=== PATIENT | male | born 1945 | race Caucasian/White ===

== ENCOUNTER 2022-02-19 11:55 | Emergency (ER) | payer OTHER ==
[~2022-02-19] VITALS: Ht 188 cm; Wt 99.8 kg
[~2022-02-19 11:55] MED LIST: ALUMAGX30 PO; CIPR250 PO; CYAN1000 PO; CYCL10 PO; LIDO2L MM; OMEP20ER PO; SALS750 PO; TRAZ50 PO
[2022-02-19 12:34] LABS: BASOPHILS ABSOLUTE AUTO 0.01 K/mm3 (0.00-0.23); BASOPHILS PERCENT AUTO 0 % (0-2); EOSINOPHILS ABSOLUTE AUTO 0.09 K/mm3 (0.00-0.68); EOSINOPHILS PERCENT AUTO 1 % (0-6); Hematocrit 41.3 % (37.0-53.0); Hemoglobin 13.3 g/dL (13.5-17.5); IMMATURE GRAN ABSOLUTE AUTO 0.01 K/mm3 (0.00-0.10); IMMATURE GRAN PERCENT AUTO 0 % (0-1); LYMPHOCYTES ABSOLUTE AUTO 1.37 K/mm3 (0.84-5.20); LYMPHOCYTES PERCENT AUTO 19 % (21-46); MONOCYTES ABSOLUTE AUTO 0.85 K/mm3 (0.16-1.47); MONOCYTES PERCENT AUTO 12 % (4-13); Mean Corpuscular HGB 28.7 pg (26.0-34.0); Mean Corpuscular HGB Conc 32.2 g/dL (31.5-36.5); Mean Corpuscular Volume 89 fL (80-100); Mean Platelet Volume 9.6 fL (9.1-12.4); NEUTROPHILS ABSOLUTE AUTO 5.01 K/mm3 (1.96-9.15); NEUTROPHILS PERCENT AUTO 68 % (41-73); Platelet Count 397 K/mm3 (150-400); RDW Coefficient Variation 13.3 % (11.7-14.2); RDW Standard Deviation 43.6 fL (35.1-46.3); Red Blood Cell Count 4.63 M/mm3 (4.30-5.90); White Blood Cell Count 7.34 K/mm3 (4.00-11.30)
[2022-02-19 13:01] LABS: International Normalized Ratio 1.03; Prothrombin Time Results 10.8 Sec (9.7-11.5)
[2022-02-19 13:02] LABS: Albumin, Blood 3.5 g/dL (3.4-5.0); Albumin/Globulin Ratio 0.9 (0.8-1.8); Bilirubin, Total 0.5 mg/dL (0.1-1.0); Bun/Creatinine Ratio 16.6 (12.0-20.0); Calcium, Blood 9.1 mg/dL (8.5-10.1); Creatinine, Blood 0.78 mg/dL (0.60-1.20); Globulin, Blood 3.8 g/dL (2.2-4.0); Magnesium, Blood 1.8 mg/dL (1.6-2.4); Potassium, Blood 4.1 mmol/L (3.5-5.5); Total Protein, Blood 7.3 g/dL (6.4-8.2)
[2022-02-19] MEDS ORDERED: Norco 7.5-3251 EACH PO (14:57)
== END 2022-02-19 15:14 | disposition home or self-care (01) ==
LOC: ER 11:55
PROVIDERS: Emergency Medicine
DX: R09.1 Pleurisy (principal)
CPT/HCPCS: 36415; 71045; 71260; 80053; 83735; 84484; 85025; 85379; 85610; 85730; 93005; 93010; J1170; J1885; J2405; J3010; Q9967

== ENCOUNTER 2022-02-21 09:25 | Inpatient (IN) | payer OTHER ==
[~2022-02-21] VITALS: Ht 188 cm; Wt 102.0 kg
[~2022-02-21 09:25] MED LIST changes: +Norco 7.5-3251 EACH PO
[2022-02-21 09:53] LABS: BASOPHILS ABSOLUTE AUTO 0.03 K/mm3 (0.00-0.23); BASOPHILS PERCENT AUTO 0 % (0-2); EOSINOPHILS ABSOLUTE AUTO 0.04 K/mm3 (0.00-0.68); EOSINOPHILS PERCENT AUTO 0 % (0-6); Hematocrit 43.5 % (37.0-53.0); Hemoglobin 14.5 g/dL (13.5-17.5); IMMATURE GRAN ABSOLUTE AUTO 0.28 K/mm3 (0.00-0.10); IMMATURE GRAN PERCENT AUTO 1 % (0-1); LYMPHOCYTES ABSOLUTE AUTO 0.63 K/mm3 (0.84-5.20); LYMPHOCYTES PERCENT AUTO 3 % (21-46); MONOCYTES ABSOLUTE AUTO 1.62 K/mm3 (0.16-1.47); MONOCYTES PERCENT AUTO 8 % (4-13); Mean Corpuscular HGB Conc 33.3 g/dL (31.5-36.5); Mean Corpuscular Volume 87 fL (80-100); Mean Platelet Volume 9.4 fL (9.1-12.4); NEUTROPHILS ABSOLUTE AUTO 18.03 K/mm3 (1.96-9.15); NEUTROPHILS PERCENT AUTO 87 % (41-73); Platelet Count 401 K/mm3 (150-400); RDW Coefficient Variation 13.2 % (11.7-14.2); RDW Standard Deviation 42.2 fL (35.1-46.3); White Blood Cell Count 20.63 K/mm3 (4.00-11.30)
[2022-02-21 10:13] LABS: Albumin, Blood 2.8 g/dL (3.4-5.0); Albumin/Globulin Ratio 0.7 (0.8-1.8); Bilirubin, Total 0.5 mg/dL (0.1-1.0); Bun/Creatinine Ratio 25.3 (12.0-20.0); Creatinine, Blood 0.75 mg/dL (0.60-1.20); Potassium, Blood 4.6 mmol/L (3.5-5.5); Total Protein, Blood 6.8 g/dL (6.4-8.2)
[2022-02-21] MEDS ORDERED: [UNRECOGNIZED DRUG - OTHER] PO (11:02)
[2022-02-21] MEDS ORDERED: Vitamin B Comple1 EA PO (11:02)
[2022-02-21] MEDS ORDERED: Atarax10 MG PO (11:05)
[2022-02-21] MEDS ORDERED: FINA5 PO (11:06)
[2022-02-21] MEDS ORDERED: TAMS.4ER PO (11:06)
[2022-02-21] MEDS ORDERED: LIDO700A20 TOP (11:07)
[2022-02-21 15:41] LABS: SARS-Cov-2 (COVID-19) PCR, MMC NEGATIVE (NEGATIVE)
--- NOTE | 2022-02-21 19:25 | NUR ---
Admit note Received report from PATRICK Juarez in ed. Pt to room at approx 1420, [facility]. Pt oriented to room and call light, educated on fall risk. Pt reports sob on/off for "awhile", chest pain he was seen for on monday and diagnoses with "pleurisy". Ultra sound tech called regarding thoracentesis, pt taking ibuprofen at home and "full dose" aspirin at [facility] today; notified tech, plans for thorcentesis tomorrow. Pt alert, oriented x4, calm and cooperative with care. Ls clear in upper lobes, dim to bases on admission. At approx 1800 pt went into resp distress, Ls increased dim t/o, increased need for 02 2-4L, increased work of breathing; notified Dr Donohue, new order for one time duoneb and prn cpap if need, duoneb administered per rt pt work of breahing improved. Tele afib 130-150 on admission on cardizem 5mg/hr, bp soft, fluid bolus from ed compelted, started on maintenance fluids, bp trending up, increased cardizem up to 15mg/hr afib 110-130's. Pt reports lower left chest pain that is worse with breathing and chronic back pain. Pt denies nausea, dizziness and numb/tingling. Other vss. Echo order, hr too high to be completed. Pt on iv antibiotics. No other acute changes noted. Report given to oncoming patrick.
[2022-02-22 04:13] LABS: BASOPHILS ABSOLUTE AUTO 0.02 K/mm3 (0.00-0.23); BASOPHILS PERCENT AUTO 0 % (0-2); EOSINOPHILS ABSOLUTE AUTO 0.04 K/mm3 (0.00-0.68); EOSINOPHILS PERCENT AUTO 0 % (0-6); Hemoglobin 13.2 g/dL (13.5-17.5); IMMATURE GRAN ABSOLUTE AUTO 0.44 K/mm3 (0.00-0.10); IMMATURE GRAN PERCENT AUTO 2 % (0-1); LYMPHOCYTES ABSOLUTE AUTO 0.65 K/mm3 (0.84-5.20); LYMPHOCYTES PERCENT AUTO 3 % (21-46); MONOCYTES ABSOLUTE AUTO 1.81 K/mm3 (0.16-1.47); MONOCYTES PERCENT AUTO 8 % (4-13); Mean Corpuscular HGB 28.7 pg (26.0-34.0); Mean Corpuscular Volume 87 fL (80-100); Mean Platelet Volume 9.4 fL (9.1-12.4); NEUTROPHILS ABSOLUTE AUTO 18.56 K/mm3 (1.96-9.15); NEUTROPHILS PERCENT AUTO 86 % (41-73); Platelet Count 425 K/mm3 (150-400); RDW Coefficient Variation 13.4 % (11.7-14.2); RDW Standard Deviation 42.8 fL (35.1-46.3); White Blood Cell Count 21.52 K/mm3 (4.00-11.30)
[2022-02-22 04:28] LABS: International Normalized Ratio 1.09; Prothrombin Time Results 11.4 Sec (9.7-11.5)
[2022-02-22 04:34] LABS: Albumin, Blood 2.3 g/dL (3.4-5.0); Albumin/Globulin Ratio 0.6 (0.8-1.8); Bilirubin, Total 0.3 mg/dL (0.1-1.0); Bun/Creatinine Ratio 21.4 (12.0-20.0); Calcium, Blood 8.4 mg/dL (8.5-10.1); Creatinine, Blood 0.75 mg/dL (0.60-1.20); Globulin, Blood 3.8 g/dL (2.2-4.0); Potassium, Blood 4.1 mmol/L (3.5-5.5); Total Protein, Blood 6.1 g/dL (6.4-8.2)
--- NOTE | 2022-02-22 06:23 | NUR ---
SHIFT SUMMARY PT ALERT AND ORIENTED X 4. HR TACHY AT TIMES, SEE ICU FLOW SHEET FOR CARDIZEM ADJUSTMENTS. CARDIZEM CURRENTLY AT 10 ML/HR. HR 110'S-120. BP STABLE. PT REPORTS PAIN IN L SIDE/BACK. PHYSICIAN AWARE. MEDICATED PER EMAR. PT REPORTS INCREASE IN PAIN THIS AM, PHYSICIAN NOTIFIED AND MEDICATION ORDERED. PT REPORTS TO HAVE DIFFICULTY URINATING. BLADDER SCAN DONE, SHOWING 800 ML OF URINE IN BLADDER. PT REFUSING OPTION OF CATHETER AT THIS POINT. STATES HE WAS TAUGHT HOW TO SELF CATH BY HIS UROLOGIST. PT REQUESTING TO ATTEMPT TO URINATE ON OWN. PT EDUCATED ON RISKS OF URINARY RETENTION. PT CONT TO REFUSE CATH AT THIS TIME. WILL INFORM PHYSICIAN. OXYGEN SATURATION MAINTAINED ABOVE 95% ON 5 L VIA NC. CALL LIGHT WITHIN REACH. WILL CONT TO MONITOR UNTIL REPORT GIVEN TO DAYSHIFT RN.
--- NOTE | 2022-02-22 07:15 | NUR ---
UPDATE PHYSICIAN NOTIFIED OF BLADDER SCAN AMOUNT OF OVER 800, INFORMED PT REFUSING THOMAS CATH AND FOR NURSING STAFF TO STRAIGHT CATH AND THAT PT REPORTS TO HAVE BEEN TAUGHT BY UROLOGIST HOW TO STRAIGHT CATH AT HOME. ORDERS FOR PT TO STRAIGHT CATH SELF. PT PROVIDED WITH SUPPLIES. JAQUELINE NGUYEN INFORMED.
[2022-02-22 10:11] LABS: Automated BF RBC Count 0.003 M/mm3 (0-0); Automated BF WBC Count 6.354 K/mm3 (0-999); Body Fluid WBC Count 6354 /mm3 (0-999); RBC Count, Body Fluid 3000 /mm3 (0-0)
[2022-02-22 10:28] LABS: Protein, Body Fluid 4.2 g/dL
[2022-02-22 10:35] LABS: Lactate Dehydrogenase, Body Fl 2265 U/L
[2022-02-22 10:42] LABS: Color, Body Fluid Yellow (None-Yellow); Total Cell Count, Body Fluid 100
[2022-02-22 10:43] LABS: Appearance, Body Fluid Cloudy (Clear)
[2022-02-22 15:25] LABS: Vancomycin, Trough 10.8 ug/mL (5.0-10.0)
--- NOTE | 2022-02-22 19:32 | NUR ---
Shift Summary Pt alert, oriented x4; anxious at times but cooperative with care. Pt resting in bed, up sba in room. Pt reports pain to left side/ribs, medicated per emar. Pt sob with exertion, breathing treatment prn, spo2 >90% t/o shift, titrated to ra from 5l o2 via nc after throacentesis this am. Pt tele afib, titrated off cardizem, at approx 11am and started po metorpolol, rate 80-130's, hr increased when patient is worked up, bp stable. Pt abd soft, nontedner. Pt self cathed this am, refusing additional cathing this afternoon. Other vss. echo completed this am. Pt expressing fear/concern/anxiety regarding diagnosis, states he fears he has cancer, theraputic listening used. Called to clarify blood culture orders with Dr Vincent, notified hr trending up. Discussed anxiety and pain with Dr Proctor, new order for prn hydroxyzine. Report given to oncoming rn.
[2022-02-23 04:38] LABS: BASOPHILS ABSOLUTE AUTO 0.03 K/mm3 (0.00-0.23); BASOPHILS PERCENT AUTO 0 % (0-2); EOSINOPHILS ABSOLUTE AUTO 0.11 K/mm3 (0.00-0.68); EOSINOPHILS PERCENT AUTO 1 % (0-6); Hemoglobin 13.3 g/dL (13.5-17.5); IMMATURE GRAN ABSOLUTE AUTO 0.09 K/mm3 (0.00-0.10); IMMATURE GRAN PERCENT AUTO 1 % (0-1); LYMPHOCYTES ABSOLUTE AUTO 0.65 K/mm3 (0.84-5.20); LYMPHOCYTES PERCENT AUTO 4 % (21-46); MONOCYTES ABSOLUTE AUTO 1.82 K/mm3 (0.16-1.47); MONOCYTES PERCENT AUTO 10 % (4-13); Mean Corpuscular HGB Conc 33.3 g/dL (31.5-36.5); Mean Corpuscular Volume 87 fL (80-100); Mean Platelet Volume 9.2 fL (9.1-12.4); NEUTROPHILS ABSOLUTE AUTO 15.45 K/mm3 (1.96-9.15); NEUTROPHILS PERCENT AUTO 85 % (41-73); Platelet Count 447 K/mm3 (150-400); RDW Coefficient Variation 13.4 % (11.7-14.2); RDW Standard Deviation 43.3 fL (35.1-46.3); Red Blood Cell Count 4.59 M/mm3 (4.30-5.90); White Blood Cell Count 18.15 K/mm3 (4.00-11.30)
[2022-02-23 05:04] LABS: Albumin, Blood 2.3 g/dL (3.4-5.0); Albumin/Globulin Ratio 0.6 (0.8-1.8); Bilirubin, Total 0.4 mg/dL (0.1-1.0); Calcium, Blood 8.6 mg/dL (8.5-10.1); Creatinine, Blood 0.7 mg/dL (0.60-1.20); Globulin, Blood 3.9 g/dL (2.2-4.0); Total Protein, Blood 6.2 g/dL (6.4-8.2)
--- NOTE | 2022-02-23 05:14 | NUR ---
shift summary pt rested well through the night. alert and oriented, able to make needs known. cooperative with plan of care. sats >95% on ra. tele was afib 140's, started cardizem gtt at 10mg/hr, po lopressor given, now rate is at 90-100's. dilt gtt down to 5mg/hr. voiding to urinal. some pain in l flank/back from thoracentesis. see emar. vss. call light within reach, bed in lowest position. will continue to monitor.
--- NOTE | 2022-02-23 17:55 | NUR ---
SHIFT SUMMARY PT HAS HAD DIFFICULTY RELAXING OR RESTING THROUGHOUT THE DAY. PT HAS C/O 7/10 PAIN TO THE LEFT CHEST THAT IS A SHARP, STABBING PAIN THAT INCREASES IN INTENSITY WITH INSPIRATION. PT BECOMES ACUTELY AWARE OF THE PLEURITIC PAIN AT TIMES AND BECOMES PREOCCUPIED WITH THE POSSIBLE CAUSES. THIS PREOCCUPATION BRINGS ABOUT PERIODS OF INCREASED ANXIETY THAT CAUSE THE PT TO BREATHE FASTER AND MORE SHALLOW, WHICH IN TURN INCREASES THE PLEURITIC PAIN THAT THEY PERCEIVE. PT HAS DECLINED ALL DISTRACTION MEASURES AND DECLINED REAPPLYING HEATING PAD. HEART RATE HAS RANGED 82-133, SBP 92-112. TEMP, SPO2, AND RESPIRATORY RATE STABLE.
--- NOTE | 2022-02-23 21:11 | NUR ---
Assumed care 1900. VSS on 2L. HR was sustaining 130s prior to PO metoprolol dose. PO metoprolol and PO pain meds given and HR decreased to 90-100s. Pt requested bowel meds, senna and docusate have not been successful. MD ordered miralax, will give per orders. Pt requested sleep aid, MD added melatonin. notified that pt has been complaining of trouble laying down without getting very SOB and has needed to be placed on 2L of oxygen at the end of day shift. d/c fluids for now, pt was getting NS 125ml/hr and has been intaking PO fluids well. Fluids were stopped.
[2022-02-24 04:04] LABS: BASOPHILS ABSOLUTE AUTO 0.03 K/mm3 (0.00-0.23); BASOPHILS PERCENT AUTO 0 % (0-2); EOSINOPHILS PERCENT AUTO 1 % (0-6); Hematocrit 39.4 % (37.0-53.0); Hemoglobin 13.2 g/dL (13.5-17.5); IMMATURE GRAN ABSOLUTE AUTO 0.13 K/mm3 (0.00-0.10); IMMATURE GRAN PERCENT AUTO 1 % (0-1); LYMPHOCYTES ABSOLUTE AUTO 0.96 K/mm3 (0.84-5.20); LYMPHOCYTES PERCENT AUTO 7 % (21-46); MONOCYTES ABSOLUTE AUTO 1.76 K/mm3 (0.16-1.47); MONOCYTES PERCENT AUTO 12 % (4-13); Mean Corpuscular HGB Conc 33.5 g/dL (31.5-36.5); Mean Corpuscular Volume 87 fL (80-100); Mean Platelet Volume 9.4 fL (9.1-12.4); NEUTROPHILS ABSOLUTE AUTO 11.62 K/mm3 (1.96-9.15); NEUTROPHILS PERCENT AUTO 80 % (41-73); Platelet Count 515 K/mm3 (150-400); RDW Coefficient Variation 13.8 % (11.7-14.2); RDW Standard Deviation 44.1 fL (35.1-46.3); Red Blood Cell Count 4.55 M/mm3 (4.30-5.90)
--- NOTE | 2022-02-24 04:12 | NUR ---
Teaching Young Note. Pt is A&O, anxious. Scheduled atarax given with some effect. Pain reported in left side, prn tramadol, tylenol, flexeril and fentynl given overnight per NOV. Pt reports he has not had BM in 5 days, scheduled meds given with no effect. MD called to get more PRN meds, miralax given with no result at this time. PRN melatonin given. PRN cough medications given per NOV. Pt reports SOB, especially when laying down. Pt reports weight gain since admission. MD notified of increased oxygen demand (now 2L from RA), weight gain and positional SOB and MD d/c continuous fluids. Standing weight completed per orders. IV abx given.
[2022-02-24 04:24] LABS: Albumin, Blood 2.1 g/dL (3.4-5.0); Albumin/Globulin Ratio 0.5 (0.8-1.8); Bilirubin, Total 0.4 mg/dL (0.1-1.0); Calcium, Blood 8.7 mg/dL (8.5-10.1); Creatinine, Blood 0.71 mg/dL (0.60-1.20); Globulin, Blood 4.1 g/dL (2.2-4.0); Potassium, Blood 4.6 mmol/L (3.5-5.5); Total Protein, Blood 6.2 g/dL (6.4-8.2)
--- NOTE | 2022-02-24 17:27 | NUR ---
SHIFT SUMMARY PT HAS BEEN RESTING IN ROOM THROUGHOUT THE DAY. PT AMBULATED TO RESTROOM WITH STAND-BY ASSISTANCE ON MULTIPLE OCCASIONS. PT WILL TRANSFER INDEPENDENTLY BETWEEN BED AND CHAIR FOR COMFORT. PT CONTINUES TO HAVE INCREASED WORK OF BREATHING WHEN PAIN INCREASES. PT DESCRIBES PAIN A DEEP, SHARP, STABBING PAIN LOCALIZED TO THE LEFT CHEST THAT IS WORSE ON INSPIRATION THAN EXPIRATION. LEFT LOWER BREATH SOUNDS CONTINUE TO BE DULL AND DIMINISHED. HEART RATE HAS RANGED 89-142. PT HAS DEVELOPED A DEEP COUGH WITH SPUTUM PRODUCTION. SPUTUM HAS BEEN IN SMALL QUANTITY, WITH A THICK CHARACTER AND GREEN COLOR. PT HAS C/O GREATER EXHAUSTION TODAY THAN YESTERDAY. SBP HAS RANGED 106-145. PT HAS MAINTAINED AN SPO2 >94% ON ROOM AIR. PT WAS PLACED ON 2L NC WHICH APPEARS TO MODERATELY RELIEVE WORK OF BREATHING. PT CONTINUES TO BECOME PREOCCUPIED WITH MINOR DETAILS OF CURRENT ILLNESS AND WILL BECOME ANXIOUS. PT BENEFITS FROM THERAPEUTIC COMMUNICATION WHICH WILL MODERATELY LOWER ANXIETY.
--- NOTE | 2022-02-24 21:08 | NUR ---
Assumed care 1900. VSS on RA-2L prn. HR was sustaining 140s, scheduled metoprolol given with some effect has decreased to 110-120s. PRN pain meds given. Pt is anxious and scheduled meds given per NOV. A&O, but anxious. Education given about chest tube.
[2022-02-25 04:38] LABS: BASOPHILS ABSOLUTE AUTO 0.03 K/mm3 (0.00-0.23); BASOPHILS PERCENT AUTO 0 % (0-2); EOSINOPHILS ABSOLUTE AUTO 0.13 K/mm3 (0.00-0.68); EOSINOPHILS PERCENT AUTO 1 % (0-6); Hematocrit 38.5 % (37.0-53.0); Hemoglobin 12.9 g/dL (13.5-17.5); IMMATURE GRAN ABSOLUTE AUTO 0.27 K/mm3 (0.00-0.10); IMMATURE GRAN PERCENT AUTO 2 % (0-1); LYMPHOCYTES ABSOLUTE AUTO 0.83 K/mm3 (0.84-5.20); LYMPHOCYTES PERCENT AUTO 6 % (21-46); MONOCYTES ABSOLUTE AUTO 1.74 K/mm3 (0.16-1.47); MONOCYTES PERCENT AUTO 12 % (4-13); Mean Corpuscular HGB 28.8 pg (26.0-34.0); Mean Corpuscular HGB Conc 33.5 g/dL (31.5-36.5); Mean Corpuscular Volume 86 fL (80-100); Mean Platelet Volume 9.1 fL (9.1-12.4); NEUTROPHILS ABSOLUTE AUTO 11.84 K/mm3 (1.96-9.15); NEUTROPHILS PERCENT AUTO 80 % (41-73); Platelet Count 513 K/mm3 (150-400); RDW Coefficient Variation 13.6 % (11.7-14.2); Red Blood Cell Count 4.48 M/mm3 (4.30-5.90); White Blood Cell Count 14.84 K/mm3 (4.00-11.30)
[2022-02-25 05:02] LABS: Albumin/Globulin Ratio 0.5 (0.8-1.8); Bilirubin, Total 0.5 mg/dL (0.1-1.0); Bun/Creatinine Ratio 25.9 (12.0-20.0); Calcium, Blood 8.7 mg/dL (8.5-10.1); Creatinine, Blood 0.66 mg/dL (0.60-1.20); Globulin, Blood 4.3 g/dL (2.2-4.0); Potassium, Blood 4.4 mmol/L (3.5-5.5); Total Protein, Blood 6.3 g/dL (6.4-8.2)
--- NOTE | 2022-02-25 06:02 | NUR ---
Upset Operator Note: Pt A&O, pleasant with cares. VSS on RA-1L overnight prn. PRN pain meds given per NOV. Melatonin given for sleep aid. Pt slept on and off overnight. PRN cough meds given per NOV. Plan is for chest tube placement today.
[2022-02-25 15:29] LABS: Automated BF WBC Count 6.599 K/mm3 (0-999); Body Fluid WBC Count 6599 /mm3 (0-999)
[2022-02-25 15:44] LABS: pH, Body Fluid 6.7
[2022-02-25 15:57] LABS: Glucose, Body Fluid 1 mg/dL
[2022-02-25 16:05] LABS: Lactate Dehydrogenase, Body Fl 2270 U/L
[2022-02-25 16:21] LABS: RBC Count, Body Fluid 168 /mm3 (0-0)
[2022-02-25 16:42] LABS: Appearance, Body Fluid Cloudy (Clear); Color, Body Fluid Yellow (None-Yellow); Total Cell Count, Body Fluid 100
--- NOTE | 2022-02-25 16:59 | NUR ---
SHIFT SUMMARY PT HAS BEEN RESTING IN ROOM. PT WOULD TRANSFER SELF TO CHAIR AND BACK TO BED PRIOR TO CHEST TUBE PLACEMENT. PT WAS TRANSPORTED BY WHEELCHAIR FOR CHEST TUBE PLACEMENT. PROVIDER ASSESSED PT AND GAVE ORDERS FOR VOLUME OF FLUID TO BE REMOVED THROUGH CHEST TUBE. PT TOLERATED THIS WELL UNTIL THE LAST 200mL OF FLUID WERE BEING REMOVED. PT STATED THAT IT BECAME QUITE PAINFUL THOUGH THEY WERE ABLE TO BREATHE MORE EASILY. HEART RHYTHM HAS CONTINUED IN ATRIAL FIBRILLATION WITH A RATE RANGE OF 113-151. SBP HAS RANGED 109-127, SLOWLY INCREASING THROUGHOUT THE DAY. PT HAS HAD LESS ANXIETY TODAY AND HAS BEEN MORE VERBAL ABOUT THEIR ANXIETY.
--- NOTE | 2022-02-25 21:32 | NUR ---
Assumed care 1900. VSS on RA-1L prn. Tele: HR 90-110s, scheduled metoprolol given. PRN cough meds and tramadol given per NOV. Pt fell alseep shortly after meds and appears comfortable at this time. Chest tube in place and valve is closed per Dr. Ritter's orders. Repeat imaging is ordered for 0500 and then MD will decide further action from there. Site looks good with no crepitus felt. Breath sounds clear in upper airway and diminished in left lower lobe. Crackles heard in right lower lobe
--- NOTE | 2022-02-25 23:10 | NUR ---
Chest tube site looks good. No crepitus felt. VSS on 1L.
--- NOTE | 2022-02-26 04:11 | NUR ---
Pot Filler Note: Pt is A&O, pleasant with cares. Anxious at times, scheduled atarax given per orders. VSS on RA-1L prn. Chest tube in place posterior on the left side. Per Dr. Ritter orders chest tube has been left clamped overnight. No crepetis felt and dressing looks good. Oxygen sats have been good overnight 92-97% on RA-1L. Xray is ordered for 5AM and per Dr. Ritter's orders/notes chest tube interventions will be reassessed after imaging. Tele: afib 90-110s. BP stable MAP >65. PRN pain meds given per NOV. IV abx continued per NOV. Pt has 2 working PIVs. Pt had questions about chest tube and afib, all questions answered.
[2022-02-26 04:43] LABS: BASOPHILS ABSOLUTE AUTO 0.03 K/mm3 (0.00-0.23); BASOPHILS PERCENT AUTO 0 % (0-2); EOSINOPHILS PERCENT AUTO 2 % (0-6); Hematocrit 36.6 % (37.0-53.0); IMMATURE GRAN ABSOLUTE AUTO 0.36 K/mm3 (0.00-0.10); IMMATURE GRAN PERCENT AUTO 3 % (0-1); LYMPHOCYTES ABSOLUTE AUTO 1.46 K/mm3 (0.84-5.20); LYMPHOCYTES PERCENT AUTO 14 % (21-46); MONOCYTES ABSOLUTE AUTO 1.11 K/mm3 (0.16-1.47); MONOCYTES PERCENT AUTO 10 % (4-13); Mean Corpuscular HGB 28.8 pg (26.0-34.0); Mean Corpuscular HGB Conc 32.8 g/dL (31.5-36.5); Mean Corpuscular Volume 88 fL (80-100); Mean Platelet Volume 8.9 fL (9.1-12.4); NEUTROPHILS ABSOLUTE AUTO 7.66 K/mm3 (1.96-9.15); NEUTROPHILS PERCENT AUTO 71 % (41-73); Platelet Count 472 K/mm3 (150-400); RDW Coefficient Variation 13.9 % (11.7-14.2); RDW Standard Deviation 44.8 fL (35.1-46.3); Red Blood Cell Count 4.17 M/mm3 (4.30-5.90); White Blood Cell Count 10.82 K/mm3 (4.00-11.30)
[2022-02-26 05:05] LABS: Bun/Creatinine Ratio 19.3 (12.0-20.0); Calcium, Blood 8.5 mg/dL (8.5-10.1); Creatinine, Blood 0.73 mg/dL (0.60-1.20); Potassium, Blood 4.2 mmol/L (3.5-5.5)
--- NOTE | 2022-02-26 17:44 | NUR ---
SHIFT SUMMARY PT HAS BEEN RESTING IN ROOM THROUGHOUT THE DAY. PT HAS HAD A LOWER ENERGY LEVEL TODAY COMPARED WITH YESTERDAY. PT AMBULATED TO RESTROOM ONCE AND TRANSFERRED SELF TO CHAIR A FEW TIMES. PT HAS STATED A LOWER OVERALL PAIN LEVEL TODAY. HEART RATE HAS MAINTAINED A LOWER RANGE TODAY OF 96-109 BPM. SBP HAS CONSISTENTLY BEEN 105. PT TOLERATED FLUID BEING REMOVED FROM CHEST DRAIN WELL WITH ONLY MINOR INCREASES TO PAIN THAT WERE OF SHORT DURATION. THERE WERE NO ACUTE EVENTS OR CHANGES IN PT CONDITION.
[2022-02-27 04:08] LABS: BASOPHILS ABSOLUTE AUTO 0.04 K/mm3 (0.00-0.23); BASOPHILS PERCENT AUTO 0 % (0-2); EOSINOPHILS ABSOLUTE AUTO 0.14 K/mm3 (0.00-0.68); EOSINOPHILS PERCENT AUTO 1 % (0-6); Hematocrit 41.6 % (37.0-53.0); Hemoglobin 13.6 g/dL (13.5-17.5); IMMATURE GRAN ABSOLUTE AUTO 0.46 K/mm3 (0.00-0.10); IMMATURE GRAN PERCENT AUTO 4 % (0-1); LYMPHOCYTES ABSOLUTE AUTO 1.57 K/mm3 (0.84-5.20); LYMPHOCYTES PERCENT AUTO 14 % (21-46); MONOCYTES ABSOLUTE AUTO 1.04 K/mm3 (0.16-1.47); MONOCYTES PERCENT AUTO 9 % (4-13); Mean Corpuscular HGB 28.6 pg (26.0-34.0); Mean Corpuscular HGB Conc 32.7 g/dL (31.5-36.5); Mean Corpuscular Volume 87 fL (80-100); Mean Platelet Volume 8.9 fL (9.1-12.4); NEUTROPHILS ABSOLUTE AUTO 8.11 K/mm3 (1.96-9.15); NEUTROPHILS PERCENT AUTO 71 % (41-73); Platelet Count 521 K/mm3 (150-400); RDW Coefficient Variation 13.7 % (11.7-14.2); RDW Standard Deviation 44.2 fL (35.1-46.3); Red Blood Cell Count 4.76 M/mm3 (4.30-5.90); White Blood Cell Count 11.36 K/mm3 (4.00-11.30)
--- NOTE | 2022-02-27 05:44 | NUR ---
SHIFT SUMMARY PT ALERT AND ORIENTED X 4. HR IN AFIB, 90'S-120. BP STABLE. PT REPORTS CHEST PRESSURE AT 0520. PHYSICIAN NOTIFIED. EKG DONE, WNL. ORDERS FOR TROPONIN. CHEST TUBE WNL, NO CREPITUS, DRESSING C/D/I. DRAINAGE YELLOW IN COLOR. OXYGEN SATURATION MAINTAINED ABOVE 92% ON RA TO 2 L. PT ABLE TO TURN SELF IN BED. CALL LIGHT WITHIN REACH. WILL CONT TO MONITOR UNTIL REPORT GIVEN TO DAYSHIFT RN.
--- NOTE | 2022-02-27 05:58 | NUR ---
UPDATE PT ANASTACIO SLEEPING AT THIS TIME. VSS. WILL CONT TO MONITOR.
--- NOTE | 2022-02-27 07:16 | NUR ---
UPDATE PT REPORTS CHEST PRESSURE IS SAME CHEST PRESSURE RELATED TO CHEST TUBE REPORTED IN PRIOR DAYS. VSS. PT MEDICATED PER EMAR. REPORT GIVEN TO PATRICK SULLIVAN.
--- NOTE | 2022-02-27 17:22 | NUR ---
SHIFT SUMMARY PT HAS BEEN UP IN ROOM THROUGHOUT DAY. PT HAS HAD LOWER LEVELS OF PAIN COMPARED WITH YESTERDAY. CHEST TUBE REMAINES PATENT WITH DRESSING INTACT, NO CREPITUS NOTED TO SURROUNDING TISSUE. HEART RATE HAS REMAINED APPROXIMATELY 100 BPM AND SBP HAS RANGED 98-108. PT CONTINUES TO HAVE PAIN LOCALIZED TO THE LEFT SIDE OF CHEST THAT IS WORSE ON INSPIRATION. PT HAS GOTTEN OUT OF BED AND AMBULATED TO RESTROOM WITH PROMPTING AND ENCOURAGEMENT. PT BECOME FLAT AND WITHDRAWN AFTER DISCUSSING WITH THE PROVIDER THAT MORE DAYS OF HOSPITALIZATION WOULD BE NECESSARY.
[2022-02-28 04:45] LABS: BASOPHILS ABSOLUTE AUTO 0.02 K/mm3 (0.00-0.23); BASOPHILS PERCENT AUTO 0 % (0-2); EOSINOPHILS ABSOLUTE AUTO 0.12 K/mm3 (0.00-0.68); EOSINOPHILS PERCENT AUTO 1 % (0-6); Hematocrit 38.5 % (37.0-53.0); Hemoglobin 12.5 g/dL (13.5-17.5); IMMATURE GRAN ABSOLUTE AUTO 0.39 K/mm3 (0.00-0.10); IMMATURE GRAN PERCENT AUTO 4 % (0-1); LYMPHOCYTES ABSOLUTE AUTO 1.45 K/mm3 (0.84-5.20); LYMPHOCYTES PERCENT AUTO 14 % (21-46); MONOCYTES PERCENT AUTO 9 % (4-13); Mean Corpuscular HGB 28.4 pg (26.0-34.0); Mean Corpuscular HGB Conc 32.5 g/dL (31.5-36.5); Mean Corpuscular Volume 88 fL (80-100); Mean Platelet Volume 8.9 fL (9.1-12.4); NEUTROPHILS ABSOLUTE AUTO 7.19 K/mm3 (1.96-9.15); NEUTROPHILS PERCENT AUTO 71 % (41-73); Platelet Count 562 K/mm3 (150-400); RDW Coefficient Variation 13.7 % (11.7-14.2); RDW Standard Deviation 44.1 fL (35.1-46.3); White Blood Cell Count 10.07 K/mm3 (4.00-11.30)
[2022-02-28 05:12] LABS: Bun/Creatinine Ratio 16.9 (12.0-20.0); Calcium, Blood 8.6 mg/dL (8.5-10.1); Creatinine, Blood 0.65 mg/dL (0.60-1.20); Potassium, Blood 4.2 mmol/L (3.5-5.5)
--- NOTE | 2022-02-28 06:25 | NUR ---
SHIFT SUMMARY PT ALERT AND ORIENTED X 4. HR STABLE, AFIB 90'S-110'S. BP STABLE, MAP ABOVE 65. OXYGEN SATURATION MAINTAINED ABOVE 94% ON RA. PT REPORTS PAIN IN L SIDE/CHEST. PHYSICIAN AWARE, NO CHANGES IN PAIN LOCATION OVER LAST 24 HOURS. MEDICATED PER EMAR. CHEST TUBE DRAINING YELLOW FLUID. NO CREPITUS. NO ACUTE CHANGES OVER NIGHT. PT TO X RAY THIS AM. PT ABLE TO TURN SELF IN BED NEEDED. SBA. WILL CONT TO MONITOR UNTIL REPORT GIVEN TO DAYSHIFT RN.
--- NOTE | 2022-02-28 12:58 | NUR ---
PATIENT WAS INDEPENDENT WITH EATING HIS LUNCH, OBSERVED PATIENT TO MAKE SURE HE WAS ABLE TO SWALLOW HIS FOOD. FOOD WAS FALLING OUT FROM HIS RIGHT SIDE FOR THE FIRST COUPLE BITES, BUT SLOWED DOWN HE WAS EATING. PATIENT IS SITTING UP VIA ST ORDERS, CALL LIGHT IN REACH, RN NOTIFIED.
--- NOTE | 2022-02-28 17:30 | NUR ---
SHIFT SUMMARY PT HAS BEEN RESTING IN ROOM THROUGHOUT THE DAY. PT STATED THAT THEY WERE EXPERIENCING A LACK OF ENERGY. PT STATED THAT THEIR OVERALL PAIN LEVEL IS LESSENED TODAY WHEN COMPARED WITH YESTERDAY. PT CONTINUES TO EXPERIENCE PAIN IN THE LEFT CHEST REGION THAT IS WORSE ON INSPIRATION. PT AMBULATED SELF IN ROOM. CHEST TUBE DRAINAGE SYSTEM WAS EMPTIED ONLY ONCE DURING SHIFT. HEART RHYTHM HAS CONTINUED IN ATRIAL FIBRILLATION AT A RATE OF 82-129 WITH AVERAGE RESTING RATES IN THE 90'S. SYSTOLIC BLOOD PRESSURES HAVE CONSISTENTLY BEEN HIGH 90'S TO LOW 100'S. THERE WERE NO ACUTE CHANGES IN PT CONDITION.
[2022-03-01 04:13] LABS: BASOPHILS ABSOLUTE AUTO 0.02 K/mm3 (0.00-0.23); BASOPHILS PERCENT AUTO 0 % (0-2); EOSINOPHILS ABSOLUTE AUTO 0.08 K/mm3 (0.00-0.68); EOSINOPHILS PERCENT AUTO 1 % (0-6); Hematocrit 37.2 % (37.0-53.0); Hemoglobin 12.2 g/dL (13.5-17.5); IMMATURE GRAN ABSOLUTE AUTO 0.24 K/mm3 (0.00-0.10); IMMATURE GRAN PERCENT AUTO 3 % (0-1); LYMPHOCYTES ABSOLUTE AUTO 1.07 K/mm3 (0.84-5.20); LYMPHOCYTES PERCENT AUTO 13 % (21-46); MONOCYTES ABSOLUTE AUTO 0.71 K/mm3 (0.16-1.47); MONOCYTES PERCENT AUTO 9 % (4-13); Mean Corpuscular HGB 28.6 pg (26.0-34.0); Mean Corpuscular HGB Conc 32.8 g/dL (31.5-36.5); Mean Corpuscular Volume 87 fL (80-100); Mean Platelet Volume 8.8 fL (9.1-12.4); NEUTROPHILS ABSOLUTE AUTO 5.91 K/mm3 (1.96-9.15); NEUTROPHILS PERCENT AUTO 74 % (41-73); Platelet Count 516 K/mm3 (150-400); RDW Coefficient Variation 13.7 % (11.7-14.2); RDW Standard Deviation 43.2 fL (35.1-46.3); Red Blood Cell Count 4.27 M/mm3 (4.30-5.90); White Blood Cell Count 8.03 K/mm3 (4.00-11.30)
[2022-03-01 04:32] LABS: Bun/Creatinine Ratio 15.9 (12.0-20.0); Calcium, Blood 8.3 mg/dL (8.5-10.1); Creatinine, Blood 0.63 mg/dL (0.60-1.20); Potassium, Blood 4.1 mmol/L (3.5-5.5)
--- NOTE | 2022-03-01 05:53 | NUR ---
SHIFT SUMMARY PT ALERT AND ORIENTED X 4. HR STABLE. BP STABLE. PT REPORTS PAIN IN L SIDE, D/T CHEST TUBE. MEDICATED PER EMAR. PT SBA. ABLE TO TURN SELF IN BED. NO ACUTE CHANGES T/O SHIFT. CHEST TUBE PATENT AND DRAINING YELLOW FLUID. 45 ML OF DRAINAGE OUT DURING SHIFT. SITE WNL. DRESSING C/D/I. OXYGEN SATURATION MAINTAINED ABOVE 94% ON RA. CALL LIGHT WITHIN REACH. WILL CONT TO MONITOR UNTIL REPORT GIVEN TO DAYSHIFT RN.
--- NOTE | 2022-03-01 13:13 | NUR ---
URACEL CHEST TUBE NOTE BLUE CAP WAS TWISTED OPEN AND DRAINAGE WENT TO PT BED AN UNMEASURED VOLUME. CAP TO DRAINAGE BAG CLEANED AND IS PATENT WITH NO SIGNS OF LEAKING. WILL CONTINUE TO MONITOR.
--- NOTE | 2022-03-01 16:08 | NUR ---
CHEST TUBE NOTE THIS NURSE OPENED VALVE ON CHEST TUBE LOCATED ON LEFT FLANK AREA PER DR. LEACH ORDERS.
--- NOTE | 2022-03-01 17:45 | NUR ---
SHIFT SUMMARY PT IS ALERT AND ORIENTED X 4. HR WAS SR UPON ASSUMPTION OF CARE, THEN WENT TO AFIB APPROX. 0745, THEN NSR AGAIN AT APPROX 1100 AND REMAINS IN NSR PER TELE REPORT IN 70'S, BP STABLE AND PT IS ON ROOM AIR. HE HAS REPORTED PAIN IN LEFT FLANK AREA, SEE EMAR. HEATING PAD ALSO OFFERED TO ALLEVIATE PAIN BUT PT REPORTED IT DID NOT HELP. URACEL CHEST TUBE ON LEFT POSTERIOR IS PATENT AND DRAINING APPROPRIATELY W/ APPROX 700ML OUTPUT DURING SHIFT. HE APPEARS STEADY ON HIS FEET AND HAS AMBULATED TO BATHROOM INDEPENDENTLY. WAS AT BEDSIDE THIS AFTERNOON. DR. LEACH ALSO AT BEDSIDE DURING SHIFT. HE HAS DENIED FEELINGS OF SHORTNESS OF BREATH OR CARDIAC RELATED PAIN. NO OTHER ACUTE CHANGES NOTED. CALL LIGHT IS IN REACH. WILL CONTINUE TO MONITOR UNTIL REPORT GIVEN.
[2022-03-02 04:51] LABS: Bun/Creatinine Ratio 16.8 (12.0-20.0); Calcium, Blood 8.7 mg/dL (8.5-10.1); Creatinine, Blood 0.66 mg/dL (0.60-1.20); Potassium, Blood 4.6 mmol/L (3.5-5.5)
--- NOTE | 2022-03-02 05:44 | NUR ---
PAPER CORE MACHINE OPERATOR SUMMARY PT IS AXO AND COMMUNICATING APPROPRIATELY. PT REPORTING INCREASED PAIN AROUND HIS CHEST TUBE THAT KEPT HIM AWAKE FOR MOST OF THE NIGHT. PT GIVEN PAIN MEDS PER EMAR W MINIMAL RELIEF. TELE SHOWING SR IN THE 70'S W OCCASIONAL PVC'S. BP WNL AND STABLE THIS SHIFT. URECIL CHEST TUBE PATENT AND DRAINED 420ML DARK YELLOW FLUID THIS SHIFT. O2 SATS >92% ON RM AIR. PT AFEBRILE. WILL REPORT TO ONCOMING RN.
--- NOTE | 2022-03-02 18:04 | NUR ---
ASSUMED CARE OF PT AT 0700. PT HAS REQUIRED PRN DOSES OF FENTANYL/MORPHINE TODAY FOR PAIN CONTROL. DR LEACH AT BEDSIDE THIS AFTERNOON, INSTILLED ALTEPLASE AND DORNASE INTO CHEST TUBE TO ASSIST WITH DRAINAGE. CHEST TUBE DRAINAGE AT THE START OF THE SHIFT APPEARED TO BE MORE CLEAR AND HAS BECOME MORE CLOUDY T/O THE DAY, ORANGE IN COLOR. SEE I/O FOR AMOUNT DRAINED THIS SHIFT. CHEST TUBE CLAMPED PER DR LEACH'S ORDERS, PT TOLERATED DRAINAGE WELL WITHOUT REPORTS OF SIGNIFICANT INCREASE IN PAIN. VSS. PT UP AND AMBULATING IN HALLWAY TODAY WELL WITH SBA. NO OTHER NEEDS IDENTIFIED AT THIS TIME, CALL LIGHT IN REACH, WILL CONTINUE TO MONITOR AND REPORT TO NOC SHIFT RN.
--- NOTE | 2022-03-03 04:53 | NUR ---
UPDATE PT AWOKE W COUGH THAT LED TO DESATURATION DOWN TO 67% THAT IS NOT IMPROVING. PT BOOSTED IN BED TO IMPROVE LUNG POSITION BUT O2 SATS STILL AT 69%. PROVIDER BEING CALLED NOW FOR FURTHER ORDERS.
--- NOTE | 2022-03-03 05:57 | NUR ---
PRODUCTION MAINTENANCE TECHNICIAN SUMMARY PT IS ALERT AND COMMUNICATING APPROPRIATELY THIS SHIFT. PT HAD A MUCH BETTER NIGHT COMPARED TO PREVIOUS NIGHT REPORTING MUCH LESS PAIN AND REQUIRING FEWER MEDICATIONS FOR IT. CHEST TUBE PATENT AND DRAINING 400ML CLEAR ORANGE FLUID THIS SHIFT. O2 SATS >92% ON RM AIR. TELE SHOWED SR IN THE 80'S UNTIL APPROX 0415 WHEN THE PT CONVERTED TO AFIB 100-110'S. PT ASYMPTOMATIC TO AFIB. PT ABLE TO SLEEP MUCH OF THE NIGHT. BP WNL AND STABLE. PT AFEBRILE. WILL REPORT TO ONCOMING RN.
[2022-03-03 14:18] LABS: BASOPHILS ABSOLUTE AUTO 0.03 K/mm3 (0.00-0.23); BASOPHILS PERCENT AUTO 0 % (0-2); EOSINOPHILS PERCENT AUTO 1 % (0-6); Hematocrit 37.5 % (37.0-53.0); Hemoglobin 12.1 g/dL (13.5-17.5); IMMATURE GRAN ABSOLUTE AUTO 0.13 K/mm3 (0.00-0.10); IMMATURE GRAN PERCENT AUTO 1 % (0-1); LYMPHOCYTES ABSOLUTE AUTO 1.03 K/mm3 (0.84-5.20); LYMPHOCYTES PERCENT AUTO 7 % (21-46); MONOCYTES ABSOLUTE AUTO 1.58 K/mm3 (0.16-1.47); MONOCYTES PERCENT AUTO 10 % (4-13); Mean Corpuscular HGB 28.7 pg (26.0-34.0); Mean Corpuscular HGB Conc 32.3 g/dL (31.5-36.5); Mean Corpuscular Volume 89 fL (80-100); Mean Platelet Volume 8.9 fL (9.1-12.4); NEUTROPHILS ABSOLUTE AUTO 12.28 K/mm3 (1.96-9.15); NEUTROPHILS PERCENT AUTO 81 % (41-73); Platelet Count 533 K/mm3 (150-400); RDW Coefficient Variation 13.5 % (11.7-14.2); RDW Standard Deviation 44.2 fL (35.1-46.3); Red Blood Cell Count 4.21 M/mm3 (4.30-5.90); White Blood Cell Count 15.15 K/mm3 (4.00-11.30)
--- NOTE | 2022-03-03 18:13 | NUR ---
ASSUMED CARE OF PT AT [address] LEACH INTO SEE PT AND INSTIL ALTEPLASE/DORNASE INTO PT'S CHEST TUBE. PT HAD REPORTED HIS PAIN TO BE WELL CONTROLLED PRIOR TO THIS. CHEST TUBE CLAMPED AND UNCLAMED PER DR LEACH'S ORDERS. DR [place] NOTIFIED OF PT'S NEED FOR ADDITIONAL PAIN MEDICATIONS AFTER ORDERED PRNs DID NOT CONTROL PT'S PAIN. ADDITIONAL PRN ORDER RECEIVED AND ADMINISTERED PER MD ORDERS. PT IS RESTING WITH EYES CLOSED, RESPS EVEN AND UNLABORED, APPEARS MEDICATION HAS BEEN EFFECTIVE. VSS T/O SHIFT. NO OTHER ACUTE EVENTS. CHEST TUBE CONTINUES TO DRAIN CLOUDY PINK THICK DRAINAGE. CALL LIGHT IN REACH, WILL CONTINUE TO MONITOR.
--- NOTE | 2022-03-04 04:17 | NUR ---
SHIFT SUMMARY NO ACUTE CHANGES THIS SHIFT. VSS. AXO. IN SR. ON RA. 275 TOTAL DRAINED FROM CHESAT TUBE CURRENTLY, CONTENTS YELLOW, NO CHUNCKS NOTED. DRAINS WELL. PT'S PAIN VERY DIFFICULT TO MANAGE AT BEGINNING OF SHIFT BUT ONCE PAIN THRESHOLD REAched, maintaining apppropriate pain control ACHIEVABLE. CHEST TUBE SECURED TO BODY. PT UP IN ROOM THIS SHIFT TO VOID BUT HAS OTHERWISE BEEN TRYING TO REST MUCH POSSIBLE.
[2022-03-04 04:42] LABS: Bun/Creatinine Ratio 18.2 (12.0-20.0); Calcium, Blood 8.6 mg/dL (8.5-10.1); Creatinine, Blood 0.55 mg/dL (0.60-1.20); Potassium, Blood 4.3 mmol/L (3.5-5.5)
[2022-03-04] MEDS ORDERED: Norco 5-325 Ta1 EACH PO (14:03)
[2022-03-04] MEDS ORDERED: Acetaminophen650 M1 PO (14:07)
[2022-03-04] MEDS ORDERED: XARELTO20 MG PO (14:08)
[2022-03-04] MEDS ORDERED: Tessalon200 MG PO (14:08)
[2022-03-04] MEDS ORDERED: FOLI1 PO (14:09)
[2022-03-04] MEDS ORDERED: METO50ER PO (14:10)
[2022-03-04] MEDS ORDERED: B-1100 M1 PO (14:11)
[2022-03-04] MEDS ORDERED: MIRALAX17 GM PO (14:11)
[2022-03-04] MEDS ORDERED: VISBIOME 112.51 EACH PO (14:12)
[2022-03-04] MEDS ORDERED: AMOCLA875 PO (14:12)
--- NOTE | 2022-03-04 14:34 | NUR ---
PT DISHCARGE BARROW WORKER FAXED IN PT'S MEDICATIONS TO PT'S PREFERRED PHARMACY. PT PROVIDED WITH DISCHARGE INSTRUCTIONS PER PHYSICIAN ORDER. PT HAS HARD COPY OF PAIN MEDICATIONS, COPY MADE AND PUT INTO PT CHART. IV REMOVED, TELE REMOVED. PT BROUGHT TO 'S VEHICLE BY BUSINESS ARCHITECT BY WHEELCHAIR WITH ALL PT BELONGINGS.
== END 2022-03-04 14:32 | disposition home or self-care (01) | DRG 871 ==
LOC: ER 09:25 → PCU 13:57
PROVIDERS: Emergency Medicine; Family Medicine; Internal Medicine Critical Care Medicine; Nurse Practitioner Acute Care; ADMIT Hospitalist
PROC: 3E03329 Introduction of Other Anti-infective into Peripheral Vein, Percutaneous Approach (ICD-10-PCS; 2022-02-21)
PROC: 0W9B30Z Drainage of Left Pleural Cavity with Drainage Device, Percutaneous Approach (ICD-10-PCS; principal; 2022-02-22)
DX: A41.9 Sepsis, unspecified organism (principal); J18.9 Pneumonia, unspecified organism; J86.9 Pyothorax without fistula; I33.0 Acute and subacute infective endocarditis; J96.00 Acute respiratory failure, unspecified whether with hypoxia or hypercapnia; E87.2 Acidosis; J91.8 Pleural effusion in other conditions classified elsewhere; Z20.822 Contact with and (suspected) exposure to COVID-19; R65.20 Severe sepsis without septic shock; N40.0 Benign prostatic hyperplasia without lower urinary tract symptoms; E66.9 Obesity, unspecified; G89.29 Other chronic pain; F41.9 Anxiety disorder, unspecified; R07.89 Other chest pain; I48.91 Unspecified atrial fibrillation; M54.9 Dorsalgia, unspecified; Z68.28 Body mass index [BMI] 28.0-28.9, adult; Z98.84 Bariatric surgery status; Z90.89 Acquired absence of other organs; Z90.49 Acquired absence of other specified parts of digestive tract; Z79.899 Other long term (current) drug therapy
CPT/HCPCS: 32555; 32557; 36415; 71045; 71046; 71250; 80048; 80053; 80202; 82945; 82947; 83605; 83615; 83735; 83880; 83986; 84145; 84157; 84443; 84484; 85025; 85610; 85651; 85730; 86140; 87040; 87070; 87076; 87077; 87185; 87186; 87205; 88108; 88305; 89051; 93005; 93010; 93306; 94640; 94664; 94760; 94762; 96365; 96366; 96367; 96375; 99285-25; A9270; J0295; J0456; J0696; J1170; J1650; J1940; J2270; J2405; J2543; J2997; J3010; J3370; J7030; J7040; J7050; J7060; U0004

== ENCOUNTER 2022-03-21 08:41 | Emergency (ER) | payer OTHER ==
[~2022-03-21] VITALS: Ht 188 cm; Wt 90.7 kg
[~2022-03-21 08:41] MED LIST changes: +AMOCLA875 PO; +Acetaminophen650 M1 PO; +Atarax10 MG PO; +B-1100 M1 PO; +FINA5 PO; +FOLI1 PO; +LIDO700A20 TOP; +METO50ER PO; +MIRALAX17 GM PO; +Norco 5-325 Ta1 EACH PO; +TAMS.4ER PO; +Tessalon200 MG PO; +VISBIOME 112.51 EACH PO; +Vitamin B Comple1 EA PO; +XARELTO20 MG PO; +[UNRECOGNIZED DRUG - OTHER] PO
[2022-03-21 09:34] LABS: BASOPHILS ABSOLUTE AUTO 0.01 K/mm3 (0.00-0.23); BASOPHILS PERCENT AUTO 0 % (0-2); EOSINOPHILS ABSOLUTE AUTO 0.06 K/mm3 (0.00-0.68); EOSINOPHILS PERCENT AUTO 1 % (0-6); Hematocrit 36.4 % (37.0-53.0); Hemoglobin 11.4 g/dL (13.5-17.5); IMMATURE GRAN ABSOLUTE AUTO 0.03 K/mm3 (0.00-0.10); IMMATURE GRAN PERCENT AUTO 0 % (0-1); LYMPHOCYTES ABSOLUTE AUTO 1.14 K/mm3 (0.84-5.20); LYMPHOCYTES PERCENT AUTO 12 % (21-46); MONOCYTES PERCENT AUTO 8 % (4-13); Mean Corpuscular HGB 27.1 pg (26.0-34.0); Mean Corpuscular HGB Conc 31.3 g/dL (31.5-36.5); Mean Corpuscular Volume 87 fL (80-100); NEUTROPHILS ABSOLUTE AUTO 7.46 K/mm3 (1.96-9.15); NEUTROPHILS PERCENT AUTO 79 % (41-73); Platelet Count 499 K/mm3 (150-400); RDW Coefficient Variation 13.1 % (11.7-14.2); Red Blood Cell Count 4.21 M/mm3 (4.30-5.90)
[2022-03-21 09:47] LABS: Albumin, Blood 2.4 g/dL (3.4-5.0); Albumin/Globulin Ratio 0.5 (0.8-1.8); Bilirubin, Total 0.2 mg/dL (0.1-1.0); Bun/Creatinine Ratio 23.2 (12.0-20.0); Calcium, Blood 9.2 mg/dL (8.5-10.1); Creatinine, Blood 0.6 mg/dL (0.60-1.20); Globulin, Blood 4.7 g/dL (2.2-4.0); Potassium, Blood 4.6 mmol/L (3.5-5.5); Total Protein, Blood 7.1 g/dL (6.4-8.2)
[2022-03-21] MEDS ORDERED: HYDR1TAB94 PO (14:35)
== END 2022-03-21 15:02 | disposition home or self-care (01) ==
LOC: ER 08:41
PROVIDERS: Student in an Organized Health Care Education/Training Program
DX: J90 Pleural effusion, not elsewhere classified (principal); I10 Essential (primary) hypertension; J43.9 Emphysema, unspecified; Z79.899 Other long term (current) drug therapy
CPT/HCPCS: 71046; 71260; 80053; 83880; 84484; 85025; 93005; 93010; 96374; 96376; 99285-25; J1170; Q9967

== ENCOUNTER 2022-04-06 14:01 | Day surgery (SDC) | payer OTHER ==
[~2022-04-06 14:01] MED LIST changes: +HYDR1TAB94 PO
== END 2022-04-06 23:29 | disposition home or self-care (01) ==
LOC: US 14:01
PROVIDERS: Anesthesiology
DX: J90 Pleural effusion, not elsewhere classified (principal); Z20.822 Contact with and (suspected) exposure to COVID-19
CPT/HCPCS: 76604; 87426; 87811

== ENCOUNTER 2023-11-09 08:53 | Observation (INO) | payer OTHER ==
[~2023-11-09] VITALS: Ht 165.1 cm; Wt 95.2 kg
[2023-11-09 09:30] LABS: BASOPHILS ABSOLUTE AUTO 0.02 K/mm3 (0.00-0.23); BASOPHILS PERCENT AUTO 0 % (0-2); EOSINOPHILS ABSOLUTE AUTO 0.13 K/mm3 (0.00-0.68); EOSINOPHILS PERCENT AUTO 2 % (0-6); Hematocrit 39.9 % (37.0-53.0); IMMATURE GRAN ABSOLUTE AUTO 0.02 K/mm3 (0.00-0.10); IMMATURE GRAN PERCENT AUTO 0 % (0-1); LYMPHOCYTES ABSOLUTE AUTO 1.17 K/mm3 (0.84-5.20); LYMPHOCYTES PERCENT AUTO 18 % (21-46); MONOCYTES ABSOLUTE AUTO 0.65 K/mm3 (0.16-1.47); MONOCYTES PERCENT AUTO 10 % (4-13); Mean Corpuscular HGB Conc 32.6 g/dL (31.5-36.5); Mean Corpuscular Volume 89 fL (80-100); Mean Platelet Volume 9.5 fL (9.1-12.4); NEUTROPHILS ABSOLUTE AUTO 4.55 K/mm3 (1.96-9.15); NEUTROPHILS PERCENT AUTO 70 % (41-73); Platelet Count 292 K/mm3 (150-400); RDW Coefficient Variation 14.6 % (11.7-14.2); Red Blood Cell Count 4.49 M/mm3 (4.30-5.90); White Blood Cell Count 6.54 K/mm3 (4.00-11.30)
[2023-11-09 10:03] LABS: Albumin, Blood 3.6 g/dL (3.4-5.0); Albumin/Globulin Ratio 1.2 (0.8-1.8); Bilirubin, Total 0.7 mg/dL (0.1-1.0); Bun/Creatinine Ratio 19.3 (12.0-20.0); Calcium, Blood 9.2 mg/dL (8.5-10.1); Creatinine, Blood 0.94 mg/dL (0.60-1.20); Magnesium, Blood 1.9 mg/dL (1.6-2.4); Potassium, Blood 4.7 mmol/L (3.5-5.5); Total Protein, Blood 6.6 g/dL (6.4-8.2)
[2023-11-09] MEDS ORDERED: Mag Sulfate 1 GM/D5% 100ML 100 ML IV ONE (10:05)
[2023-11-09] MEDS ORDERED: Aspirin 81 MG Chew PO ONE (11:05)
[2023-11-09 11:53] LABS: International Normalized Ratio 1.03; Prothrombin Time Results 10.8 Sec (9.7-11.5)
[2023-11-09] MEDS ORDERED: Acetaminophen 325 MG TABLET PO PRN (11:55)
[2023-11-09] MEDS ORDERED: Ondansetron HCl 2 MG / ML 2ML Vial IV PRN (11:55)
[2023-11-09] MEDS ORDERED: FLU VACC QS2023-24(6MOS UP)/PF 60 MCG/0.5 ML SYRINGE IM ONE (11:55)
[2023-11-09] MEDS ORDERED: Dose Adjust by Pharmacy XX STA (11:57)
[2023-11-09] MEDS ORDERED: Heparin Sodium,Porcine/0.5 NS 500 ML IV SCH (12:00)
--- NOTE | 2023-11-09 13:44 | NUR ---
Telephone report from ED.
[2023-11-09 13:54] VITALS: BP 124/93
--- NOTE | 2023-11-09 14:02 | NUR ---
Pt arrived to PCU 19. 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 STates that he has a Spinal cord stimulator. TRoponin being drawn at this time.
[2023-11-09] MEDS ORDERED: HYDHCL25 PO (14:20)
--- NOTE | 2023-11-09 14:24 | NUR ---
Dr. Lara is here to see the patient. He remains NPO, only ice chips offered at this time.
[2023-11-09] MEDS ORDERED: IBUP600 PO (14:46)
[2023-11-09] MEDS ORDERED: LIDO700A20 TOP (14:48)
[2023-11-09] MEDS ORDERED: Voltaren100 GM TOP (14:49)
[2023-11-09 15:41] VITALS: BP 119/84
--- NOTE | 2023-11-09 15:50 | NUR ---
Admission history completed. Pt was here in PCU as a patient recently for severe sepsis, he says. Pt states that during that admission he had atrial fibrillation, which to his knowledge, was the first time it had happened. He was discharged with a prescription of Toprol XL, but he stopped taking it he said about a week afterwards because it made him feel so run down. Home med rec completed, updated in the chart. Pt just had a short run of atrial fibrillation, 120-144 bpm. pt was up to the bathroom to void and said that he did not feel it at all; he is now converted to normal sinus rhythm.
--- NOTE | 2023-11-09 18:21 | NUR ---
Pt continues to be pleasantly conversant, states that he is feeling fine. No more atrial fibrillation noted. Sinus rhythm with PACs. Denies any pain. Heparin gtt continues previous rate.
[2023-11-09] MEDS ORDERED: Heparin Sodium 5000 Units/ML 1ML MDV IV ONE (19:50)
[2023-11-09 20:01] VITALS: BP 125/109
[2023-11-09 23:08] VITALS: BP 103/67
[2023-11-10 02:19] LABS: Bun/Creatinine Ratio 19.9 (12.0-20.0); Calcium, Blood 8.7 mg/dL (8.5-10.1); Creatinine, Blood 0.81 mg/dL (0.60-1.20)
[2023-11-10] MEDS ORDERED: Ibuprofen 400 MG Tab PO SCH (02:20)
[2023-11-10] MEDS ORDERED: HyDROXyzine HCl 10 MG Tab PO ONE (02:20)
[2023-11-10 03:40] VITALS: BP 91/73
--- NOTE | 2023-11-10 05:37 | NUR ---
PT AOX4. ABLE TO COMMUNICATE NEEDS EFFECTIVELY AND OBEYS COMMANDS. SPO2>92% ON RA BREATHING EVEN AND UNLABORED. PT C/O BACK PAIN AND BEING UNABLE TO SLEEP. MD NOTIFIED, ORDERS GIVEN, PT MEDICATED PER EMAR. PT NPO SINCE MIDNIGHT FOR 2ND HALF OF STRESS TEST. ABD SOFT AND NONTENDER. PT ABLE TO REPOSITION SELF IN BED INDEPENDENTLY. HEPARIN GTT INFUSING PER EMAR. NO ACUTE CHANGES.
[2023-11-10] MEDS ORDERED: Regadenoson 0.4 MG/5 ML SYRINGE ONE (07:19)
[2023-11-10] MEDS ORDERED: Aminophylline 250MG / 10ML 10 ML Vial ONE (07:19)
[2023-11-10 08:00] VITALS: BP 137/67
[2023-11-10 08:09] LABS: Hematocrit 42.2 % (37.0-53.0); Hemoglobin 13.5 g/dL (13.5-17.5); Mean Corpuscular HGB 28.7 pg (26.0-34.0); Mean Corpuscular Volume 90 fL (80-100); Mean Platelet Volume 9.6 fL (9.1-12.4); Platelet Count 310 K/mm3 (150-400); RDW Coefficient Variation 14.5 % (11.7-14.2); RDW Standard Deviation 47.6 fL (35.1-46.3); Red Blood Cell Count 4.71 M/mm3 (4.30-5.90); White Blood Cell Count 5.34 K/mm3 (4.00-11.30)
[2023-11-10] MEDS ORDERED: Dose Adjust by Pharmacy XX STA (08:32)
[2023-11-10] MEDS ORDERED: Aspirin 81 MG Chew PO SCH (09:00)
[2023-11-10] MEDS ORDERED: ASPI81CH PO (12:42)
[2023-11-10] MEDS ORDERED: ATOR80 PO (12:43)
== END 2023-11-10 13:17 | disposition home or self-care (01) ==
LOC: ER 08:53 → PCU 08:54
PROVIDERS: Student in an Organized Health Care Education/Training Program; ADMIT Internal Medicine
DX: I21.4 Non-ST elevation (NSTEMI) myocardial infarction (principal); I25.119 Atherosclerotic heart disease of native coronary artery with unspecified angina pectoris; I48.0 Paroxysmal atrial fibrillation; I25.2 Old myocardial infarction; I10 Essential (primary) hypertension; I35.0 Nonrheumatic aortic (valve) stenosis; N40.0 Benign prostatic hyperplasia without lower urinary tract symptoms; J43.9 Emphysema, unspecified; K21.9 Gastro-esophageal reflux disease without esophagitis; Z79.899 Other long term (current) drug therapy; Z98.84 Bariatric surgery status; Z87.891 Personal history of nicotine dependence
CPT/HCPCS: 36415; 71046; 78452; 80048; 80053; 83735; 84484; 85025; 85027; 85610; 85730; 93005; 93010; 93017; 96365; 96366; 96367; 99285-25; A9270; A9500; G0378; J0280; J1644; J2785; J3475